=== PATIENT | female | born 1990 ===

== ENCOUNTER 2023-12-03 09:33 | Inpatient (IN) | payer OTHER ==
[2023-12-03 10:22] LABS: BASO % 0.3 % (0-2.0); EOS % 1.2 % (0-4.5); HEMATOCRIT 33.8 % (32.4-45.2); HEMOGLOBIN 11.3 GM/dL (10.7-15.3); LYMPH % 17.6 % (8-40); MCH 30.2 pg (25.7-33.7); MCHC 33.4 g/dl (32.0-36.0); MEAN CELL VOLUME 90.6 fl (80-96); MEAN PLT VOLUME 9.2 fl (7.5-11.1); MONO % 5.1 % (3.8-10.2); NEUT % 75.8 % (42.8-82.8); PLATELET COUNT 144 10^3/uL (134-434); RBC 3.73 M/mm3 (3.60-5.2); RDW 13.9 % (11.6-15.6); WHITE BLOOD COUNT 5.7 K/mm3 (4.0-10.0)
[2023-12-03 10:29] LABS: INR 0.92 (0.83-1.09); PROTHROMBIN TIME (PATIENT) 10.6 SEC (9.7-13.0)
[2023-12-03 10:32] LABS: ACTIVATED PTT 27.4 SECONDS (25.2-36.5)
[2023-12-03 10:38] LABS: CHLORIDE 105 mmol/L (98-107); SODIUM 136 mmol/L (136-145)
[2023-12-03 10:39] LABS: CALCIUM 9.2 mg/dL (8.5-10.1)
[2023-12-03 10:40] LABS: ANION GAP 7 mmol/L (4-13); BLOOD UREA NITROGEN 8.3 mg/dL (7-18); CO2 24 mmol/L (21-32); GLUCOSE,RANDOM 115 mg/dL (74-106)
[2023-12-03 10:43] LABS: CREATININE 0.5 mg/dL (0.55-1.3)
[2023-12-03] MEDS: ELECTROLYTE-148 SOLN 1,000 ML IV SCH (10:45)
[2023-12-03 10:49] VITALS: BMI 28.2
[2023-12-03] MEDS ORDERED: OXYTOCIN 30 UNITS in 0.9% NS 30 UNIT/500 ML INFUS.BAG IVPB ONE (11:26)
[2023-12-03] MEDS: OXYTOCIN 30 UNITS in 0.9% NS 30 UNIT/500 ML INFUS.BAG IVPB SCH (11:30)
[2023-12-03 13:57] VITALS: RESP 18
[2023-12-03] MEDS ORDERED: PROMETHAZINE HCL 25 MG/1 ML VIAL ONE (21:29)
[2023-12-03] MEDS ORDERED: BUTORPHANOL TARTRATE 2 MG/ML VIAL ONE (21:29)
[2023-12-03] MEDS: PROMETHAZINE HCL 25 MG/1 ML VIAL IVPB ONE (21:35)
[2023-12-03] MEDS: BUTORPHANOL TARTRATE 1 MG/ML VIAL IVPUSH ONE (21:35)
[2023-12-03] MEDS ORDERED: LIDOCAINE HCL 1% PRESERVATIVE FREE - 30ML VIAL ONE (22:19)
[2023-12-03] MEDS ORDERED: OXYTOCIN 20 UNITS in 0.9% NS 20 UNIT/1,000 ML INFUS.BAG IV ONE (22:19)
[2023-12-03] MEDS: OXYTOCIN 20 UNITS in 0.9% NS 20 UNIT/1,000 ML INFUS.BAG IV SCH (22:48)
[2023-12-03 23:33] LABS: CORD BASE EXCESS -7.1 mmol/L (0-2); CORD HCO3 18.1 mmHg (20-29); CORD PCO2 35.3 mmHg (30-78); CORD pH 7.328 (7.14-7.44)
[2023-12-03] MEDS ORDERED: ACETAMINOPHEN 325 MG TABLET (FP) PO PRN (23:35)
[2023-12-03] MEDS ORDERED: METHYLERGONOVINE MALEATE 0.2 MG/1 ML AMP IM PRN (23:35)
[2023-12-03] MEDS ORDERED: BISACODYL 10 MG SUPP.RECT RC PRN (23:35)
[2023-12-03 23:36] LABS: CORD BASE EXCESS -5.6 mmol/L (0-2); CORD HCO3 19.4 mmHg (20-29); CORD PCO2 36.8 mmHg (30-78); CORD pH 7.34 (7.14-7.44)
[2023-12-04] MEDS: BENZOCAINE 20% 57 GM BOTTLE TP PRN (03:06)
[2023-12-04] MEDS: BENZOCAINE 28 GM HEMORRHOIDAL OINTMENT TP PRN (03:07)
[2023-12-04] MEDS: IBUPROFEN 600 MG TABLET (FP) PO PRN (03:07)
[2023-12-04] MEDS: WITCH HAZEL 50% (TUCKS) 40 PAD/JAR PAD TP PRN (03:07)
[2023-12-04 08:36] LABS: BASO % 0.4 % (0-2.0); EOS % 0.4 % (0-4.5); HEMATOCRIT 34.1 % (32.4-45.2); HEMOGLOBIN 11.5 GM/dL (10.7-15.3); LYMPH % 10.7 % (8-40); MCH 30.4 pg (25.7-33.7); MCHC 33.8 g/dl (32.0-36.0); MEAN CELL VOLUME 89.9 fl (80-96); MEAN PLT VOLUME 9.6 fl (7.5-11.1); MONO % 6.4 % (3.8-10.2); NEUT % 82.1 % (42.8-82.8); PLATELET COUNT 158 10^3/uL (134-434); RBC 3.79 M/mm3 (3.60-5.2); RDW 13.9 % (11.6-15.6); WHITE BLOOD COUNT 10.6 K/mm3 (4.0-10.0)
[2023-12-04] MEDS ORDERED: SENNOSIDES/DOCUSATE COMBO (SENNA PLUS) TABLET (UD) PO PRN (22:00)
[2023-12-05 09:05] VITALS: BP 112/76; PULSE 86; TEMP 98.1
== END 2023-12-05 12:45 | disposition home or self-care (01) | DRG 807 ==
LOC: JLDR 09:33 → J3W 12-04 01:09
PROVIDERS: ADMIT Obstetrics & Gynecology; ATTEND Obstetrics & Gynecology
PROC: 10E0XZZ Delivery of Products of Conception, External Approach (ICD-10-PCS; principal; 2023-12-03)
DX: O69.81X0 Labor and delivery complicated by cord around neck, without compression, not applicable or unspecified (principal); Z37.0 Single live birth; Z3A.37 37 weeks gestation of pregnancy
CPT/HCPCS: 36415; 36600; 59409; 80048; 82803; 85025; 85610; 85730; 86780; 86850; 86900; 86901; 87340